=== PATIENT | female | born 1950 | race African-American/Black ===

== ENCOUNTER → 2016-08-12 | Outpatient (CLI) | payer OTHER, MEDICARE ==
--- NOTE | 2016-08-12 13:50 | WOMENS IMAGING REPORT ---
EXAM DESCRIPTION: BILAT SCREENING MAMMO W/CAD COMPLETED DATE/TIME: 08/12/2016 9:32 am REASON FOR STUDY: Z12.31 ROUTINE SCREENING MAMMO Z12.31 ENCNTR SCREEN MAMMOGRAM FOR MALIGNANT NEOPL ASM OF GAY COMPARISON: 2009 to 2015 TECHNIQUE: Standard craniocaudal and mediolateral oblique views of each breast recorded using [employer] acquisition. LIMITATIONS: None. FINDINGS: No masses, calcifications or architectural distortion. No areas of suspicion. Read with the assistance of CAD. .[facility] - R2 Cenova Version 1.3 .[facility] - R2 Cenova Version 1.[address] .[facility] - R2 Cenova Version 2.4 .[facility] [place] - R2 Cenova Version 2.4 .[facility] - R2 [employer] Elint Operator Version 9.2 BREAST DENSITY: b. There are scattered areas of fibroglandular density. BIRAD: 1 NEGATIVE RECOMMENDATION: ROUTINE SCREENING COMMENT: PATIENT NOTIFIED BY LETTER. The [employer] recommends an annual screening mammogram for women aged 40 years or over. Each patient will receive a reminder prior to the anniversary date of her mammogram. The [employer] (ACR) has developed recommendations for screening MRI of the breast s in certain patient populations, to be used in conjunction with mammography. Breast MRI surveillanc e may be appropriate for women with more than 20% lifetime risk of developing breast cancer as deter mined by genetic testing, significant family history of the disease, or history of mantle radiation f or Hodgkins Disease. ACR Practice Guidelines 2008. TECHNICAL DOCUMENTATION: FINDING NUMBER: (1) ASSESSMENT: (1) JOB ID: [id number] [employer]- All Rights Reserved
== END ==
LOC: WI 09:14
PROVIDERS: ATTEND Nurse Practitioner Family
DX: Z12.31 Encounter for screening mammogram for malignant neoplasm of breast (principal)
CPT/HCPCS: 77067; G0202

== ENCOUNTER 2016-11-29 04:33 | Emergency (ER) | payer OTHER, MEDICARE ==
[2016-11-29] MEDS ORDERED: TRAMADOL HCL 50 MG TABLET PO ONE (07:29)
--- NOTE | 2016-11-29 07:34 | ER Document Report ---
ED General - General Chief Complaint: Hand Pain Stated Complaint: HAND PAIN Time Seen by Provider: 11/29/16 07:11 TRAVEL OUTSIDE OF THE [place] IN LAST 30 DAYS: No - HPI Patient complains to provider of: right hand pain Notes: Patient coming in for evaluation of right hand pain. Right hand swollen patient states last 2 days she has been doing extra gardening. Patient denies any other injuries or trauma to the hand. Patient denies fevers chills nausea vomiting abdominal pain chest pain. Patient states she does have a history of arthritis. Patient also is concerned about her blood pressure. Patient states blood pressure been on for last few days she's been taking double her lisinopril. Patient states she has not seen her primary care physician since July when her blood pressure medication was changed. - Related Data Home Medications: Current Home Medications Aspirin [Aspirin 81 mg Chewable Tablet] 81 mg PO DAILY 11/29/16 [History] Doxycycline Hyclate [Doxycycline Hyclate] 1 tab PO DAILY 11/29/16 [History] Lisinopril [Lisinopril] 2 tab PO DAILY 11/29/16 [History] Simvastatin [Simvastatin] 1 tab PO DAILY 11/29/16 [History] Past Medical History - Social History Smoking Status: Former Smoker Chew tobacco use (# tins/day): No Frequency of alcohol use: None Drug Abuse: Marijuana Family History: Reviewed & Not Pertinent Patient has suicidal ideation: No Patient has homicidal ideation: No - Past Medical History Cardiac Medical History: Reports: Hx Hypercholesterolemia, Hx Hypertension Renal/ Medical History: Denies: Hx Peritoneal Dialysis Musculoskeltal Medical History: Reports Hx Arthritis Past Surgical History: Reports: Hx Tubal Ligation - Immunizations Hx Diphtheria, Pertussis, Tetanus Vaccination: No Review of Systems - Review of Systems Constitutional: No symptoms reported EENT: No symptoms reported Cardiovascular: No symptoms reported Respiratory: No symptoms reported Gastrointestinal: No symptoms reported Genitourinary: No symptoms reported Female Genitourinary: No symptoms reported Musculoskeletal: Other - Hand pain Skin: No symptoms reported Hematologic/Lymphatic: No symptoms reported Neurological/Psychological: No symptoms reported Physical Exam - Vital signs Vitals: Temp Pulse Resp BP Pulse Ox 98.3 F 83 16 221/94 H 97 11/29/16 04:48 11/29/16 04:48 11/29/16 04:48 11/29/16 04:48 11/29/16 04:48 Interpretation: Hypertensive - General General appearance: Appears well, Alert - HEENT Head: Normocephalic, Atraumatic Eyes: Normal Pupils: PERRL - Respiratory Respiratory status: No respiratory distress Chest status: Nontender Breath sounds: Normal Chest palpation: Normal - Cardiovascular Rhythm: Regular Heart sounds: Normal auscultation Murmur: No - Abdominal Inspection: Normal Distension: No distension Bowel sounds: Normal Tenderness: Nontender Organomegaly: No organomegaly - Back Back: Normal, Nontender - Extremities General upper extremity: Nontender, Normal color, Normal ROM, Normal temperature. No: Normal inspection - Examination of the right hand does reveal swelling erythema however there is not warm. Patient does have painful range of motion Refill is intact sensation is intact. No crepitus of the hand. Administration does have a ring on the ring finger that was removed by the patient. No signs of trauma no abrasions and scratches the hand is not warm no signs of cellulitis or infection General lower extremity: Normal inspection, Nontender, Normal color, Normal ROM , Normal temperature, Normal weight bearing. No: Osmar's sign - Neurological Neuro grossly intact: Yes Cognition: Normal Orientation: AAOx4 [place] Coma Scale Eye Opening: Spontaneous [place] Coma Scale Verbal: Oriented [place] Coma Scale Motor: Obeys Commands [place] Coma Scale Total: 15 Speech: Normal Motor strength normal: LUE, RUE, LLE, RLE Sensory: Normal - Psychological Associated symptoms: Normal affect, Normal mood - Skin Skin Temperature: Warm Skin Moisture: Dry Skin Color: Normal Course - Re-evaluation Re-evalutation: 11/29/16 14:52 More likely pain is due to overuse. Patient will be given a prescription for pain medication. Patient was encouraged to continue to take Tylenol Motrin for her pain. Administration his blood pressure is elevated patient does not seem to be having symptoms of her blood pressure at this time patient states she she will follow-up with her primary care physician today for this of the abdomen take ages the patient has a asymptomatic hypertension will be discharged home - Vital Signs Vital signs: Temp Pulse Resp BP Pulse Ox 98.4 F 71 22 H 219/70 H 99 11/29/16 07:50 11/29/16 07:50 11/29/16 07:50 11/29/16 07:50 11/29/16 07:50 Discharge - Discharge Clinical Impression: Right hand pain Hypertension Qualifiers: Hypertension type: unspecified secondary hypertension Qualified Code(s): I15.9 - Secondary hypertension, unspecified Condition: Good Disposition: HOME, SELF-CARE Instructions: Ice & Elevation ([facility]), Oral Narcotic Medication ([facility]) Additional Instructions: Please be sure to keep your readings off of your right hand. Please elevate your right hand. May continue to take Tylenol Motrin for pain. He may place ice on your right hand to help out with the pain and swelling. We will prescribe the Ultram for your pain this medication is narcotic Your blood pressure is elevated today. I would highly recommend following up with your primary care physician for further evaluation of your blood pressure and blood pressure medication regimen Prescriptions: Tramadol HCl [Ultram 50 mg Tablet] 50 mg PO ASDIR PRN #20 tablet PRN Reason: Forms: Elevated Blood Pressure Referrals: FRANCISCA PEREZ, PROFESSOR OF PHILOSOPHY-C [Primary Care Provider] - Follow up in 3-5 days
[2016-11-29 08:05] VITALS: BP 219/70
== END 2016-11-29 07:40 | disposition home or self-care (01) ==
LOC: ER 04:33
DX: M79.641 Pain in right hand (principal); M79.89 Other specified soft tissue disorders; L53.9 Erythematous condition, unspecified; I10 Essential (primary) hypertension; Z79.899 Other long term (current) drug therapy; Z87.891 Personal history of nicotine dependence
CPT/HCPCS: 99283

== ENCOUNTER → 2018-10-28 | Outpatient (CLI) | payer MEDICARE, OTHER ==
[~2018-10-28] MED LIST: REGADENOSON INJ 0.4 MG/5 ML DISP.SYRIN IV ONE
== END ==
LOC: RAD 07:20
PROVIDERS: ATTEND Family Medicine
DX: R07.9 Chest pain, unspecified (principal)
CPT/HCPCS: 93017; 78452; A9500; J2785; Q9969

== ENCOUNTER 2019-03-02 07:20 | Day surgery (SDC) | payer MEDICARE, OTHER ==
[2019-03-02] MEDS ORDERED: DIPHENHYDRAMINE HCL 50 MG/ML VIAL ONE (07:24)
[2019-03-02] MEDS ORDERED: ONDANSETRON HCL INJ/PF 4 MG/2 ML SDV ONE (07:24)
[2019-03-02] MEDS ORDERED: NALOXONE HCL INJ/PF 0.4 MG/1 ML SDV ONE (07:25)
[2019-03-02] MEDS ORDERED: FENTANYL CITRATE INJ/PF 100 MCG/2 ML AMPUL ONE (07:25)
[2019-03-02] MEDS ORDERED: EPINEPHRINE INJ 1 MG/10 ML DISP.SYRIN ONE (07:25)
[2019-03-02] MEDS ORDERED: FLUMAZENIL INJ 0.5 MG/5 ML VIAL ONE (07:25)
[2019-03-02] MEDS ORDERED: GLUCAGON,HUMAN RECOMB 1 MG INJ ONE (07:25)
[2019-03-02] MEDS: MIDAZOLAM 2 MG/2 ML INJ ONE ×2 (08:10→08:14)
--- NOTE | 2019-03-02 08:23 | Operative Report ---
Operative Report DATE OF SURGERY: 03/02/19 Operative Report: The risks benefits and alternatives of the procedure explained to the patient in detail and informed consent is obtained.A GIF Olympus video scope was inserted into the patient's mouth and hypopharynx, the esophagus is identified intubated and insufflated ,the scope was then advanced through the esophagus stomach and duodenum, retroflexion maneuver is done ,the esophagus stomach and first and second portions of the duodenum examined. PREOPERATIVE DIAGNOSIS: Epigastric pain POSTOPERATIVE DIAGNOSIS: Nodular gastritis status post biopsy. Esophagitis versus Cook's status post biopsy OPERATION: EGD with biopsy SURGEON: FRANKI ALANIZ ANESTHESIA: Moderate Sedation - 3 mg of Versed, 50 mcg of fentanyl. Conscious sedation monitoring time 30 minutes. TISSUE REMOVED OR ALTERED: As noted above. COMPLICATIONS: None. ESTIMATED BLOOD LOSS: None. INTRAOPERATIVE FINDINGS: As noted above. PROCEDURE: Patient tolerated the procedure well. No immediate postprocedure complications are noted. Patient is discharged in good condition. Discharge date 03/02/2019. Discharge diet: Regular. Discharge activity: Regular. 2 to 3-week follow-up to discuss findings. Patient is instructed to call the office or proceed to the emergency room should there be any further problems or questions. Wait on the pathology.
[2019-03-02 09:44] VITALS: BP 123/65
== END 2019-03-02 09:35 | disposition home or self-care (01) ==
LOC: END 07:20
PROVIDERS: ATTEND Internal Medicine Gastroenterology
DX: K29.50 Unspecified chronic gastritis without bleeding (principal); K20.9 Esophagitis, unspecified; F17.210 Nicotine dependence, cigarettes, uncomplicated; Z79.82 Long term (current) use of aspirin; Z79.899 Other long term (current) drug therapy
CPT/HCPCS: 43239; 88342 ×2; 88305 ×2; J2250; J3010; J0171; J1200; J1610; J2310; J2405; J3490